=== PATIENT | female | born 1955 | race Caucasian/White ===

== ENCOUNTER 2021-07-10 14:29 | Emergency (ER) | payer OTHER ==
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
[2021-07-10 15:43] VITALS: BP 178/93
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
== END 2021-07-10 17:03 | disposition home or self-care (01) ==
LOC: ED 14:29
DX: M54.2 Cervicalgia (principal); M25.511 Pain in right shoulder; R07.89 Other chest pain; E78.00 Pure hypercholesterolemia, unspecified; Z88.6 Allergy status to analgesic agent; Z88.2 Allergy status to sulfonamides; Z88.8 Allergy status to other drugs, medicaments and biological substances; Z79.899 Other long term (current) drug therapy; V87.7XXA Person injured in collision between other specified motor vehicles (traffic), initial encounter; Y93.89 Activity, other specified; Y92.488 Other paved roadways as the place of occurrence of the external cause; Y99.8 Other external cause status
CPT/HCPCS: 71046; 72040; 99283